=== PATIENT | male | born 1995 ===

== ENCOUNTER 2024-09-16 12:07 | Emergency (ER) | payer BC ==
[2024-09-16] MEDS: Mupirocin Oint 22 GM Tube TOP ONE (12:39)
== END 2024-09-16 12:47 | disposition home or self-care (01) ==
LOC: DL.ED 12:07
DX: T20.211A Burn of second degree of right ear [any part, except ear drum], initial encounter (principal); I10 Essential (primary) hypertension
CPT/HCPCS: 99283; A9270